=== PATIENT | male | born 1935 | race Caucasian/White ===

== ENCOUNTER 2021-11-20 11:05 | Inpatient (IN) | payer OTHER, MEDICARE ==
[~2021-11-20] VITALS: Ht 167.6 cm; Wt 78.0 kg
[~2021-11-20 11:05] MED LIST: CHOL500013 PO; LACT1CAP57 PO; LEUP22.53 IM; LINA145C PO; MIDO5TAB4 PO; MIRA50TA PO; MULT-33 PO; NEUTPHOSP PO; PANT20TA2 PO; POTA-197 PO; TAMS-11 PO; TRAM50TA2 PO; VANORAL PO
[2021-11-20 11:18] VITALS: BP_SYST 126
[2021-11-20] MEDS ORDERED: PANTOPRAZOLE SODIUM 40 MG/VIAL (PROTONIX) IVP ONE (11:45)
[2021-11-20] MEDS ORDERED: NACL 0.9% 1,000 ML IV ONE ×2 (11:45→13:15)
[2021-11-20 11:55] LABS: BASOPHILS # (AUTO) 0.1 K/uL (0.0-0.2); BASOPHILS % (AUTO) 0.9 % (0.0-2.0); EOSINOPHILS # (AUTO) 1.1 K/uL (0.0-0.4); EOSINOPHILS % (AUTO) 7.8 % (0.0-4.0); HEMATOCRIT 34.2 % (36-54); HEMOGLOBIN 11.2 g/dL (14.0-18.0); LYMPHOCYTES # (AUTO) 1.1 K/uL (1.0-5.5); LYMPHOCYTES % (AUTO) 7.6 % (20.5-51.5); MEAN CORPUSCULAR HEMOGLOBIN 27 pg (27-31); MEAN CORPUSCULAR HGB CONC 33 % (32-36); MEAN CORPUSCULAR VOLUME 81 fL (79.0-98.0); MONOCYTES # (AUTO) 1.3 K/uL (0.0-1.0); NEUTROPHILS # (AUTO) 10.9 K/uL (1.8-7.7); NEUTROPHILS % (AUTO) 74.7 % (40.0-70.0); PLATELET COUNT (AUTO) 404 K/uL (130-430); RED BLOOD CELL COUNT(AUTO) 4.24 MIL/uL (4.2-6.2); RED CELL DISTRIBUTION WIDTH 17.4 % (9.0-15.0); WHITE BLOOD COUNT (AUTO) 14.6 K/uL (4.8-10.8)
[2021-11-20 12:12] LABS: ANION GAP 3 (5-15); CALCIUM 8.6 mg/dL (8.4-11.0); CHLORIDE 99 mmol/L (98-107); GLUCOSE 99 mg/dL (70-99); POTASSIUM 3.9 mmol/L (3.5-5.1); SODIUM SERUM 133 mmol/L (136-145); UREA NITROGEN, BLOOD 15 mg/dL (8-21)
[2021-11-20 12:18] LABS: ALANINE AMINOTRANSFERASE 40 U/L (12-78); ALBUMIN 1.7 g/dL (3.4-4.8); ASPARTATE AMINOTRANSFERASE 66 U/L (10-37); LIPASE 42 U/L (73-393); TOTAL BILIRUBIN 0.2 mg/dL (0.0-1.0)
[2021-11-20 12:27] LABS: BILIRUBIN,URINE NEGATIVE (NEGATIVE); BLOOD, URINE 1+ (NEGATIVE); CLARITY/URINE CLEAR (CLEAR); COLOR,URINE YELLOW (YELLOW); GLUCOSE,URINE NEGATIVE (NEGATIVE); KETONES,URINE 1+ (NEGATIVE); LEUKOCYTE ESTERASE ,URINE 3+ (NEGATIVE); NITRITE, URINE NEGATIVE (NEGATIVE); PROTEIN URINE 1+ (NEGATIVE); UROBILINOGEN,URINE 0.2 (0.2-1.0)
[2021-11-20 12:50] LABS: BACTERIA,URINE None Seen /HPF (None Seen); WBC,URINE 20-50 /HPF (0-3)
[2021-11-20 12:51] LABS: YEAST,URINE Few /HPF (None Seen)
[2021-11-20] MEDS ORDERED: cefTRIAXone 1 GM in D5W 50 ML IV ONE (13:00)
[2021-11-20] MEDS ORDERED: cefTRIAXone 1 GM VIAL ONE (13:05)
[2021-11-20] MEDS ORDERED: ESCI10TA PO (15:00)
[2021-11-20] MEDS ORDERED: ACET-2634 PO (15:00)
[2021-11-20] MEDS ORDERED: TROS20TA2 PO (15:00)
[2021-11-20] MEDS ORDERED: ALBMDI INH (15:00)
[2021-11-20] MEDS ORDERED: HYDR-3917 PO (15:00)
[2021-11-20] MEDS ORDERED: L.RH1CAP PO (15:00)
[2021-11-20] MEDS ORDERED: GABA-533 PO (15:00)
[2021-11-20] MEDS ORDERED: MERO1PIG IV (15:00)
[2021-11-20] MEDS ORDERED: BACL5TAB PO (15:00)
[2021-11-20] MEDS ORDERED: VIBE75TA PO (15:00)
[2021-11-20] MEDS ORDERED: MOM PO (15:00)
[2021-11-20] MEDS ORDERED: HYDR-3927 PO (15:00)
[2021-11-20] MEDS ORDERED: ZOLP5TAB2 PO (15:00)
[2021-11-20] MEDS ORDERED: DOCU-144 PO (15:00)
[2021-11-20] MEDS ORDERED: BISA10SU61 RC (15:00)
[2021-11-20 16:59] VITALS: BP_SYST 121
[2021-11-20 17:00] VITALS: BP_SYST 121
[2021-11-20] MEDS ORDERED: MAGNESIUM SULFATE 50 ML IV PRN (17:15)
[2021-11-20] MEDS ORDERED: LORazepam 2 MG/ML VIAL IVP PRN (17:15)
[2021-11-20] MEDS ORDERED: ACETAMINOPHEN 325 MG TABLET PO PRN ×2 (17:15→17:30)
[2021-11-20] MEDS ORDERED: DOCUSATE SODIUM 100 MG CAPSULE PO PRN (17:15)
[2021-11-20] MEDS ORDERED: MORPHINE 2 MG/ML INJ. SYRINGE IVP PRN (17:15)
[2021-11-20] MEDS ORDERED: NALOXONE HCL 0.4 MG/ML AMP (NARCAN) IVP PRN ×2 (17:15)
[2021-11-20] MEDS ORDERED: FLUCONAZOLE 100 MG TABLET (DIFLUCAN) PO ONE (17:15)
[2021-11-20] MEDS ORDERED: ALBUTEROL MDI INHALATION 8 GM INH INH PRN (17:15)
[2021-11-20 18:00] VITALS: BP_SYST 109
[2021-11-20] MEDS: GABAPENTIN 400 MG CAPSULE PO SCH (18:08)
[2021-11-20] MEDS: D5NS 1,000 ML IV SCH (18:09)
[2021-11-20] MEDS ORDERED: cefTRIAXone 1 GM in D5W 50 ML IV SCH (18:30)
[2021-11-20 20:00] VITALS: BP_SYST 143; BP_SYST 146
[2021-11-20] MEDS ORDERED: NON-FORMULARY MEDICATION (Trospium Chloride 20 MG) PO SCH (21:00)
[2021-11-20] MEDS: PANTOPRAZOLE SODIUM 40 MG/VIAL (PROTONIX) IVP SCH (21:08)
[2021-11-21 00:44] VITALS: BP_SYST 120
[2021-11-21] MEDS: ONDANSETRON HCL 4 MG/2 ML VIAL IVP PRN (01:24)
[2021-11-21 06:43] LABS: BASOPHILS # (AUTO) 0.1 K/uL (0.0-0.2); BASOPHILS % (AUTO) 1.3 % (0.0-2.0); EOSINOPHILS # (AUTO) 1.2 K/uL (0.0-0.4); EOSINOPHILS % (AUTO) 12.7 % (0.0-4.0); HEMATOCRIT 30.7 % (36-54); LYMPHOCYTES # (AUTO) 1.2 K/uL (1.0-5.5); LYMPHOCYTES % (AUTO) 12.4 % (20.5-51.5); MEAN CORPUSCULAR HEMOGLOBIN 27 pg (27-31); MEAN CORPUSCULAR HGB CONC 32 % (32-36); MEAN CORPUSCULAR VOLUME 82 fL (79.0-98.0); MONOCYTES # (AUTO) 1.2 K/uL (0.0-1.0); MONOCYTES % (AUTO) 12.2 % (1.7-9.3); NEUTROPHILS % (AUTO) 61.4 % (40.0-70.0); PLATELET COUNT (AUTO) 332 K/uL (130-430); RED BLOOD CELL COUNT(AUTO) 3.75 MIL/uL (4.2-6.2); RED CELL DISTRIBUTION WIDTH 17.3 % (9.0-15.0); WHITE BLOOD COUNT (AUTO) 9.7 K/uL (4.8-10.8)
[2021-11-21 07:15] LABS: ANION GAP 3 (5-15); CALCIUM 7.7 mg/dL (8.4-11.0); CHLORIDE 105 mmol/L (98-107); CREATININE 0.89 mg/dL (0.55-1.30); GLUCOSE 85 mg/dL (70-99); POTASSIUM 3.3 mmol/L (3.5-5.1); SODIUM SERUM 136 mmol/L (136-145); UREA NITROGEN, BLOOD 10 mg/dL (8-21)
[2021-11-21] MEDS ORDERED: MEROPENEM 1 GM IVPB PREMIX 50 ML IV SCH (08:30)
[2021-11-21 08:33] VITALS: BP_SYST 110
[2021-11-21] MEDS ORDERED: ESCITALOPRAM OXALATE 10 MG TABLET PO SCH (09:00)
[2021-11-21] MEDS: PANTOPRAZOLE SODIUM 40 MG/VIAL (PROTONIX) IVP SCH ×2 (09:54→21:40)
[2021-11-21] MEDS: CITALOPRAM HYDROBROMIDE 20 MG TABLET PO SCH (09:55)
[2021-11-21] MEDS: FLUCONAZOLE 100 MG TABLET (DIFLUCAN) PO SCH (09:55)
[2021-11-21] MEDS: MEROPENEM 1 GM in NS 100 ML IV SCH ×3 (09:57→21:40)
[2021-11-21] MEDS: D5NS 1,000 ML IV SCH ×2 (09:58→17:20)
[2021-11-21 12:00] VITALS: BP_SYST 115
[2021-11-21] MEDS: GABAPENTIN 400 MG CAPSULE PO SCH ×4 (12:10→18:35)
[2021-11-21 13:16] VITALS: BP_SYST 110
[2021-11-21 16:05] VITALS: BP_SYST 115
[2021-11-21] MEDS: ALBUTEROL SULFATE 0.083% 2.5 MG/3 ML VIAL.NEB INH PRN (17:47)
[2021-11-21 20:00] VITALS: BP_SYST 128
[2021-11-21] MEDS: ZOLPIDEM TARTRATE 5 MG TABLET PO PRN (21:41)
[2021-11-21] MEDS: MORPHINE 2 MG/ML INJ. SYRINGE IVP PRN (21:42)
[2021-11-22] MEDS: ONDANSETRON HCL 4 MG/2 ML VIAL IVP PRN ×2 (01:24→08:50)
[2021-11-22] MEDS: GABAPENTIN 400 MG CAPSULE PO SCH ×4 (01:24→17:31)
[2021-11-22 02:02] VITALS: BP_SYST 139
[2021-11-22] MEDS: D5NS 1,000 ML IV SCH ×2 (05:20→17:33)
[2021-11-22] MEDS: MEROPENEM 1 GM in NS 100 ML IV SCH ×3 (06:16→22:10)
[2021-11-22 06:58] LABS: ANION GAP 5 (5-15); CALCIUM 8.8 mg/dL (8.4-11.0); CHLORIDE 106 mmol/L (98-107); CREATININE 0.84 mg/dL (0.55-1.30); GLUCOSE 146 mg/dL (70-99); POTASSIUM 3.1 mmol/L (3.5-5.1); SODIUM SERUM 140 mmol/L (136-145); UREA NITROGEN, BLOOD 8 mg/dL (8-21)
[2021-11-22 07:51] LABS: BASOPHILS # (AUTO) 0.1 K/uL (0.0-0.2); BASOPHILS % (AUTO) 0.9 % (0.0-2.0); EOSINOPHILS # (AUTO) 0.2 K/uL (0.0-0.4); EOSINOPHILS % (AUTO) 1.4 % (0.0-4.0); HEMATOCRIT 34.6 % (36-54); HEMOGLOBIN 10.9 g/dL (14.0-18.0); LYMPHOCYTES % (AUTO) 6.9 % (20.5-51.5); MEAN CORPUSCULAR HEMOGLOBIN 26 pg (27-31); MEAN CORPUSCULAR HGB CONC 32 % (32-36); MEAN CORPUSCULAR VOLUME 83 fL (79.0-98.0); MONOCYTES # (AUTO) 1.6 K/uL (0.0-1.0); MONOCYTES % (AUTO) 11.4 % (1.7-9.3); NEUTROPHILS % (AUTO) 79.4 % (40.0-70.0); PLATELET COUNT (AUTO) 384 K/uL (130-430); RED BLOOD CELL COUNT(AUTO) 4.19 MIL/uL (4.2-6.2); RED CELL DISTRIBUTION WIDTH 17.3 % (9.0-15.0); WHITE BLOOD COUNT (AUTO) 13.8 K/uL (4.8-10.8)
[2021-11-22 08:00] VITALS: BP_SYST 116
[2021-11-22] MEDS: CITALOPRAM HYDROBROMIDE 20 MG TABLET PO SCH (08:50)
[2021-11-22] MEDS: PANTOPRAZOLE SODIUM 40 MG/VIAL (PROTONIX) IVP SCH ×2 (08:50→22:10)
[2021-11-22] MEDS: FLUCONAZOLE 100 MG TABLET (DIFLUCAN) PO SCH (08:51)
[2021-11-22] MEDS: MORPHINE 2 MG/ML INJ. SYRINGE IVP PRN (09:01)
[2021-11-22] MEDS ORDERED: POTASSIUM CHLORIDE 40 MEQ, LIDOCAINE JECT 2% PF 100 MG 25 MG in NS 250 ML IV ONE (09:30)
[2021-11-22] MEDS ORDERED: FUROSEMIDE 40 MG/4 ML VIAL IVP ONE (09:30)
[2021-11-22 11:38] VITALS: BP_SYST 116
[2021-11-22 15:57] VITALS: BP_SYST 120
[2021-11-22 20:00] VITALS: BP_SYST 130
[2021-11-22] MEDS ORDERED: MUPIROCIN 1 GM OIN.PF.APP NS SCH (21:00)
[2021-11-22] MEDS: MUPIROCIN 2% TOPICAL OINTMENT 22 GM NS SCH (22:11)
[2021-11-22] MEDS: ZOLPIDEM TARTRATE 5 MG TABLET PO PRN (22:12)
[2021-11-23 00:15] VITALS: BP_SYST 126
[2021-11-23] MEDS: GABAPENTIN 400 MG CAPSULE PO SCH ×4 (01:01→17:36)
[2021-11-23] MEDS: MEROPENEM 1 GM in NS 100 ML IV SCH ×3 (06:14→21:39)
[2021-11-23] MEDS: D5NS 1,000 ML IV SCH (06:15)
[2021-11-23 07:00] LABS: BASOPHILS # (AUTO) 0.2 K/uL (0.0-0.2); BASOPHILS % (AUTO) 0.9 % (0.0-2.0); EOSINOPHILS # (AUTO) 0.5 K/uL (0.0-0.4); EOSINOPHILS % (AUTO) 2.9 % (0.0-4.0); HEMATOCRIT 31.9 % (36-54); HEMOGLOBIN 10.3 g/dL (14.0-18.0); LYMPHOCYTES # (AUTO) 1.2 K/uL (1.0-5.5); LYMPHOCYTES % (AUTO) 6.4 % (20.5-51.5); MEAN CORPUSCULAR HEMOGLOBIN 26 pg (27-31); MEAN CORPUSCULAR HGB CONC 32 % (32-36); MEAN CORPUSCULAR VOLUME 82 fL (79.0-98.0); MONOCYTES # (AUTO) 1.8 K/uL (0.0-1.0); NEUTROPHILS # (AUTO) 14.3 K/uL (1.8-7.7); PLATELET COUNT (AUTO) 347 K/uL (130-430); RED BLOOD CELL COUNT(AUTO) 3.91 MIL/uL (4.2-6.2); RED CELL DISTRIBUTION WIDTH 17.5 % (9.0-15.0); WHITE BLOOD COUNT (AUTO) 17.9 K/uL (4.8-10.8)
[2021-11-23] MEDS ORDERED: SIMETHICONE 40 MG/0.6 ML ML PO ONE (07:30)
[2021-11-23] MEDS ORDERED: MEPERIDINE 100 MG INJ. 100 MG/ML VIAL ONE (07:37)
[2021-11-23] MEDS ORDERED: MIDAZOLAM HCL 5 MG/5 ML VIAL ONE (07:38)
[2021-11-23 07:48] LABS: ANION GAP 2 (5-15); CALCIUM 7.9 mg/dL (8.4-11.0); CHLORIDE 109 mmol/L (98-107); CREATININE 0.99 mg/dL (0.55-1.30); GLUCOSE 117 mg/dL (70-99); POTASSIUM 3.4 mmol/L (3.5-5.1); SODIUM SERUM 142 mmol/L (136-145); UREA NITROGEN, BLOOD 7 mg/dL (8-21)
[2021-11-23 08:00] VITALS: BP_SYST 130
[2021-11-23 08:05] VITALS: BP_SYST 102
[2021-11-23] MEDS ORDERED: DIATR MEGLU/DIATRIZ SOD 30 ML SOLUTION PO ONE (10:46)
[2021-11-23] MEDS: CITALOPRAM HYDROBROMIDE 20 MG TABLET PO SCH (11:09)
[2021-11-23] MEDS: PANTOPRAZOLE SODIUM 40 MG/VIAL (PROTONIX) IVP SCH ×2 (11:09→20:44)
[2021-11-23] MEDS: MUPIROCIN 2% TOPICAL OINTMENT 22 GM NS SCH ×2 (11:09→20:45)
[2021-11-23] MEDS: MICAFUNGIN SODIUM 100 MG in NS 100 ML IV SCH (11:14)
[2021-11-23] MEDS ORDERED: VANCOMYCIN HCL 1 GM/NS PREMIX 250 ML IV ONE (11:30)
[2021-11-23 12:22] LABS: NEUTROPHILS % (AUTO) 79.8 % (40.0-70.0)
[2021-11-23 12:41] VITALS: BP_SYST 103
[2021-11-23 16:21] VITALS: BP_SYST 109
[2021-11-23] MEDS: ALBUTEROL SULFATE 0.083% 2.5 MG/3 ML VIAL.NEB INH PRN (18:57)
[2021-11-23 20:00] VITALS: BP_SYST 131
[2021-11-24 00:21] VITALS: BP_SYST 116
[2021-11-24] MEDS: GABAPENTIN 400 MG CAPSULE PO SCH ×4 (00:25→17:29)
[2021-11-24] MEDS: D5NS 1,000 ML IV SCH ×2 (03:00→22:42)
[2021-11-24] MEDS: MEROPENEM 1 GM in NS 100 ML IV SCH ×3 (05:46→22:37)
[2021-11-24 06:57] LABS: BASOPHILS # (AUTO) 0.2 K/uL (0.0-0.2); EOSINOPHILS # (AUTO) 1.3 K/uL (0.0-0.4); EOSINOPHILS % (AUTO) 7.7 % (0.0-4.0); HEMATOCRIT 29.2 % (36-54); HEMOGLOBIN 9.3 g/dL (14.0-18.0); LYMPHOCYTES # (AUTO) 1.5 K/uL (1.0-5.5); LYMPHOCYTES % (AUTO) 8.7 % (20.5-51.5); MEAN CORPUSCULAR HEMOGLOBIN 26 pg (27-31); MEAN CORPUSCULAR HGB CONC 32 % (32-36); MEAN CORPUSCULAR VOLUME 82 fL (79.0-98.0); MONOCYTES # (AUTO) 1.3 K/uL (0.0-1.0); MONOCYTES % (AUTO) 7.4 % (1.7-9.3); NEUTROPHILS # (AUTO) 13.1 K/uL (1.8-7.7); NEUTROPHILS % (AUTO) 75.2 % (40.0-70.0); PLATELET COUNT (AUTO) 302 K/uL (130-430); RED BLOOD CELL COUNT(AUTO) 3.56 MIL/uL (4.2-6.2); RED CELL DISTRIBUTION WIDTH 17.5 % (9.0-15.0); WHITE BLOOD COUNT (AUTO) 17.4 K/uL (4.8-10.8)
[2021-11-24 07:48] LABS: ANION GAP -3 (5-15); CHLORIDE 104 mmol/L (98-107); CREATININE 0.91 mg/dL (0.55-1.30); GLUCOSE 98 mg/dL (70-99); SODIUM SERUM 134 mmol/L (136-145); UREA NITROGEN, BLOOD 10 mg/dL (8-21)
[2021-11-24 08:00] VITALS: BP_SYST 120
[2021-11-24] MEDS: ALBUTEROL SULFATE 0.083% 2.5 MG/3 ML VIAL.NEB INH PRN (08:14)
[2021-11-24 08:44] LABS: POTASSIUM 3.1 mmol/L (3.5-5.1)
[2021-11-24] MEDS: CITALOPRAM HYDROBROMIDE 20 MG TABLET PO SCH (09:58)
[2021-11-24] MEDS: PANTOPRAZOLE SODIUM 40 MG/VIAL (PROTONIX) IVP SCH ×2 (09:59→20:29)
[2021-11-24] MEDS: MUPIROCIN 2% TOPICAL OINTMENT 22 GM NS SCH ×2 (10:13→20:29)
[2021-11-24] MEDS: MICAFUNGIN SODIUM 100 MG in NS 100 ML IV SCH (10:45)
[2021-11-24] MEDS: MORPHINE 2 MG/ML INJ. SYRINGE IVP PRN ×3 (10:49→20:31)
[2021-11-24 12:00] VITALS: BP_SYST 118
[2021-11-24 16:58] VITALS: BP_SYST 119
[2021-11-24 20:00] VITALS: BP_SYST 111
[2021-11-24] MEDS: ZOLPIDEM TARTRATE 5 MG TABLET PO PRN (22:35)
[2021-11-25 01:14] VITALS: BP_SYST 115
[2021-11-25] MEDS: GABAPENTIN 400 MG CAPSULE PO SCH ×4 (05:22→17:47)
[2021-11-25] MEDS: MEROPENEM 1 GM in NS 100 ML IV SCH ×3 (05:56→22:19)
[2021-11-25 07:20] LABS: BASOPHILS # (AUTO) 0.1 K/uL (0.0-0.2); BASOPHILS % (AUTO) 1.2 % (0.0-2.0); EOSINOPHILS # (AUTO) 2.3 K/uL (0.0-0.4); EOSINOPHILS % (AUTO) 19.3 % (0.0-4.0); HEMATOCRIT 30.3 % (36-54); HEMOGLOBIN 9.6 g/dL (14.0-18.0); LYMPHOCYTES # (AUTO) 1.3 K/uL (1.0-5.5); LYMPHOCYTES % (AUTO) 11.2 % (20.5-51.5); MEAN CORPUSCULAR HEMOGLOBIN 26 pg (27-31); MEAN CORPUSCULAR HGB CONC 32 % (32-36); MEAN CORPUSCULAR VOLUME 82 fL (79.0-98.0); MONOCYTES # (AUTO) 1.1 K/uL (0.0-1.0); MONOCYTES % (AUTO) 9.2 % (1.7-9.3); NEUTROPHILS # (AUTO) 6.9 K/uL (1.8-7.7); NEUTROPHILS % (AUTO) 59.1 % (40.0-70.0); PLATELET COUNT (AUTO) 296 K/uL (130-430); RED BLOOD CELL COUNT(AUTO) 3.69 MIL/uL (4.2-6.2); RED CELL DISTRIBUTION WIDTH 17.9 % (9.0-15.0); WHITE BLOOD COUNT (AUTO) 11.7 K/uL (4.8-10.8)
[2021-11-25 08:00] VITALS: BP_SYST 119
[2021-11-25 08:06] LABS: ANION GAP -1 (5-15); CHLORIDE 110 mmol/L (98-107); CREATININE 0.93 mg/dL (0.55-1.30); GLUCOSE 93 mg/dL (70-99); SODIUM SERUM 144 mmol/L (136-145); UREA NITROGEN, BLOOD 10 mg/dL (8-21)
[2021-11-25 08:30] LABS: POTASSIUM 2.9 mmol/L (3.5-5.1)
[2021-11-25] MEDS: PANTOPRAZOLE SODIUM 40 MG/VIAL (PROTONIX) IVP SCH ×2 (09:43→22:20)
[2021-11-25] MEDS: CITALOPRAM HYDROBROMIDE 20 MG TABLET PO SCH (09:43)
[2021-11-25] MEDS: MUPIROCIN 2% TOPICAL OINTMENT 22 GM NS SCH ×2 (09:44→22:17)
[2021-11-25] MEDS ORDERED: POTASSIUM CHLORIDE 40 MEQ, LIDOCAINE JECT 2% PF 100 MG 50 MG in NS 250 ML IV ONE (10:30)
[2021-11-25 12:00] VITALS: BP_SYST 116
[2021-11-25] MEDS: MICAFUNGIN SODIUM 100 MG in NS 100 ML IV SCH (12:04)
[2021-11-25 16:00] VITALS: BP_SYST 118
[2021-11-25] MEDS: MORPHINE 2 MG/ML INJ. SYRINGE IVP PRN (17:52)
[2021-11-25] MEDS: D5NS 1,000 ML IV SCH (18:03)
[2021-11-25 20:00] VITALS: BP_SYST 141
[2021-11-25] MEDS: ZOLPIDEM TARTRATE 5 MG TABLET PO PRN (22:20)
[2021-11-26 00:50] VITALS: BP_SYST 120
[2021-11-26] MEDS: GABAPENTIN 400 MG CAPSULE PO SCH ×3 (05:35→12:18)
[2021-11-26] MEDS: MEROPENEM 1 GM in NS 100 ML IV SCH ×2 (05:59→12:20)
[2021-11-26] MEDS: MORPHINE 2 MG/ML INJ. SYRINGE IVP PRN ×2 (06:01→12:39)
[2021-11-26 08:58] LABS: ANION GAP -3 (5-15); CALCIUM 7.9 mg/dL (8.4-11.0); CHLORIDE 108 mmol/L (98-107); CREATININE 0.93 mg/dL (0.55-1.30); GLUCOSE 104 mg/dL (70-99); POTASSIUM 3.5 mmol/L (3.5-5.1); SODIUM SERUM 140 mmol/L (136-145); UREA NITROGEN, BLOOD 6 mg/dL (8-21)
[2021-11-26] MEDS: PANTOPRAZOLE SODIUM 40 MG/VIAL (PROTONIX) IVP SCH (09:06)
[2021-11-26] MEDS: CITALOPRAM HYDROBROMIDE 20 MG TABLET PO SCH (09:06)
[2021-11-26] MEDS: MUPIROCIN 2% TOPICAL OINTMENT 22 GM NS SCH (09:09)
[2021-11-26 09:37] VITALS: BP_SYST 132
[2021-11-26 10:49] VITALS: BP_SYST 132
[2021-11-26 11:45] VITALS: BP_SYST 130
[2021-11-26 12:00] VITALS: BP_SYST 128
[2021-11-26] MEDS: MICAFUNGIN SODIUM 100 MG in NS 100 ML IV SCH (12:19)
== END 2021-11-26 15:00 | DRG 871 ==
LOC: SED 11:05 → STU 15:46
PROVIDERS: ADMIT General Practice; ATTEND General Practice
PROC: 0DB78ZX Excision of Stomach, Pylorus, Via Natural or Artificial Opening Endoscopic, Diagnostic (ICD-10-PCS; principal; 2021-11-23 09:50)
DX: A41.9 Sepsis, unspecified organism (principal); K25.4 Chronic or unspecified gastric ulcer with hemorrhage; E43 Unspecified severe protein-calorie malnutrition; L02.416 Cutaneous abscess of left lower limb; M86.8X5 Other osteomyelitis, thigh; B37.49 Other urogenital candidiasis; Z20.822 Contact with and (suspected) exposure to COVID-19; C61 Malignant neoplasm of prostate; N30.90 Cystitis, unspecified without hematuria; Z92.3 Personal history of irradiation; Z85.46 Personal history of malignant neoplasm of prostate; Z90.79 Acquired absence of other genital organ(s); Z87.440 Personal history of urinary (tract) infections; Z68.27 Body mass index [BMI] 27.0-27.9, adult
CPT/HCPCS: 36415; 43239; 71045; 76376; 80048; 80053; 81000; 83036; 83605; 83690; 83735; 85025; 86886; 86900; 86901; 87040; 87081; 87086; 88305; 88312; 88313; 92610-GN; 94640; 96365; 96375; 97163-GP; 97530-GP; 99291; C9113; G0378; J0696; J1940; J2175; J2185; J2248; J2250; J2270; J2405; J3370; J3480; J7050; J7060; J7613; Q9964; Q9967

== ENCOUNTER 2021-12-02 19:10 | Inpatient (IN) | payer OTHER, MEDICARE ==
[~2021-12-02] VITALS: Ht 177.8 cm; Wt 85.7 kg
[~2021-12-02 19:10] MED LIST changes: +ACET-2634 PO; +ALBMDI INH; +BACL5TAB PO; +BISA10SU61 RC; -CHOL500013 PO; +DOCU-144 PO; +ESCI10TA PO; +GABA-533 PO; +HYDR-3917 PO; +HYDR-3927 PO; +L.RH1CAP PO; -LACT1CAP57 PO; -LEUP22.53 IM; -LINA145C PO; +MERO1PIG IV; -MIDO5TAB4 PO; -MIRA50TA PO; +MOM PO; -MULT-33 PO; -NEUTPHOSP PO; -POTA-197 PO; -TAMS-11 PO; -TRAM50TA2 PO; +TROS20TA2 PO; -VANORAL PO; +VIBE75TA PO; +ZOLP5TAB2 PO
[2021-12-02 19:20] VITALS: BP_SYST 136
[2021-12-02] MEDS ORDERED: ONDANSETRON HCL 4 MG/2 ML VIAL IVP ONE (19:45)
[2021-12-02] MEDS ORDERED: IPRA4AER INH (20:07)
[2021-12-02] MEDS ORDERED: MULT-1117 PO (20:07)
[2021-12-02] MEDS ORDERED: ONDA-8 SL (20:07)
[2021-12-02] MEDS ORDERED: ESCI10TA PO (20:07)
[2021-12-02 20:22] LABS: BASOPHILS # (AUTO) 0.2 K/uL (0.0-0.2); EOSINOPHILS # (AUTO) 0.9 K/uL (0.0-0.4); EOSINOPHILS % (AUTO) 5.8 % (0.0-4.0); HEMOGLOBIN 10.7 g/dL (14.0-18.0); LYMPHOCYTES # (AUTO) 0.9 K/uL (1.0-5.5); LYMPHOCYTES % (AUTO) 5.5 % (20.5-51.5); MEAN CORPUSCULAR HEMOGLOBIN 26 pg (27-31); MEAN CORPUSCULAR HGB CONC 32 % (32-36); MEAN CORPUSCULAR VOLUME 82 fL (79.0-98.0); MONOCYTES % (AUTO) 6.4 % (1.7-9.3); NEUTROPHILS # (AUTO) 13.3 K/uL (1.8-7.7); NEUTROPHILS % (AUTO) 81.3 % (40.0-70.0); PLATELET COUNT (AUTO) 408 K/uL (130-430); RED BLOOD CELL COUNT(AUTO) 4.13 MIL/uL (4.2-6.2); RED CELL DISTRIBUTION WIDTH 17.5 % (9.0-15.0); WHITE BLOOD COUNT (AUTO) 16.3 K/uL (4.8-10.8)
[2021-12-02 20:26] LABS: CALCIUM 8.8 mg/dL (8.4-11.0); CHLORIDE 100 mmol/L (98-107); CREATININE 0.99 mg/dL (0.55-1.30); GLUCOSE 94 mg/dL (70-99); POTASSIUM 4.1 mmol/L (3.5-5.1); SODIUM SERUM 136 mmol/L (136-145); UREA NITROGEN, BLOOD 6 mg/dL (8-21)
[2021-12-02 20:37] LABS: ALANINE AMINOTRANSFERASE 41 U/L (12-78); ALBUMIN 1.7 g/dL (3.4-4.8); ANION GAP 3 (5-15); ASPARTATE AMINOTRANSFERASE 90 U/L (10-37); LIPASE 70 U/L (73-393); TOTAL BILIRUBIN 0.2 mg/dL (0.0-1.0)
[2021-12-02] MEDS ORDERED: ONDANSETRON HCL 4 MG/2 ML VIAL ONE (20:39)
[2021-12-02 20:55] LABS: BILIRUBIN,URINE NEGATIVE (NEGATIVE); BLOOD, URINE 2+ (NEGATIVE); CLARITY/URINE CLEAR (CLEAR); GLUCOSE,URINE NEGATIVE (NEGATIVE); KETONES,URINE NEGATIVE (NEGATIVE); LEUKOCYTE ESTERASE ,URINE TRACE (NEGATIVE); NITRITE, URINE NEGATIVE (NEGATIVE); PH,URINE 6.5 (5.0-8.0); PROTEIN URINE NEGATIVE (NEGATIVE); UROBILINOGEN,URINE 0.2 (0.2-1.0)
[2021-12-02] MEDS ORDERED: PIPERACILLIN/TAZO 3.375 GM in NS 50 ML IV ONE (21:00)
[2021-12-02] MEDS ORDERED: VANCOMYCIN HCL 1,000 MG in NS 250 ML IV ONE (21:00)
[2021-12-02 21:06] LABS: COLOR,URINE STRAW (YELLOW)
[2021-12-02 21:08] LABS: BACTERIA,URINE FEW /HPF (None Seen); CALCIUM OXALATE CRYSTALS,UR 0-10 /HPF (None Seen); MUCUS,URINE None Seen /LPF (None Seen); RBC,URINE NONE SEEN /HPF (0-3)
[2021-12-02] MEDS ORDERED: ALBUMIN HUMAN 25% 100 ML IV ONE ×3 (21:15→23:30)
[2021-12-02] MEDS ORDERED: VANCOMYCIN HCL 1000 MG/VIAL IV ONE (21:23)
[2021-12-02] MEDS ORDERED: PIPERACILLIN/TAZOBACTAM 3.375 GM/VIAL (ZOSYN) IV ONE (21:23)
[2021-12-02 23:00] VITALS: BP_SYST 137
[2021-12-02] MEDS ORDERED: IPRATROPIUM/ALBUTEROL SULFATE 120 PUFFS/4 GM INH INH SCH (23:15)
[2021-12-02] MEDS ORDERED: ZOLPIDEM TARTRATE 5 MG TABLET PO PRN (23:15)
[2021-12-02] MEDS ORDERED: NALOXONE HCL 0.4 MG/ML AMP (NARCAN) IVP PRN (23:15)
[2021-12-02] MEDS ORDERED: ONDANSETRON 4 MG ODT TAB PO PRN (23:15)
[2021-12-02] MEDS ORDERED: MILK OF MAGNESIA 30 ML UDC PO SCH (23:15)
[2021-12-02] MEDS ORDERED: ENOXAPARIN SODIUM 40 MG/0.4 ML SYRINGE SUBCUT ONE (23:15)
[2021-12-02] MEDS ORDERED: AZITHROMYCIN 500 MG in NS 250 ML IV SCH (23:15)
[2021-12-02] MEDS ORDERED: PANTOPRAZOLE SODIUM 40 MG/VIAL (PROTONIX) IVP ONE (23:30)
[2021-12-03] MEDS: HYDROcodone/ACETAMIN 5-325 MG TAB (NORCO/ VICODIN) PO SCH ×3 (00:27→23:24)
[2021-12-03] MEDS: D5LR 1,000 ML IV SCH ×2 (00:30→18:48)
[2021-12-03] MEDS ORDERED: PIPERACILLIN/TAZOBACTAM 3.375 GM/VIAL (ZOSYN) IV ONE (02:46)
[2021-12-03] MEDS ORDERED: AZITHROMYCIN 500 MG/VIAL (ZITHROMAX) IV ONE (02:46)
[2021-12-03 03:46] VITALS: BP_SYST 133
[2021-12-03] MEDS: PIPERACILLIN/TAZO 3.375/DEX-IS 50 ML IV SCH ×4 (06:31→23:23)
[2021-12-03 06:56] LABS: ANION GAP 2 (5-15); CALCIUM 8.1 mg/dL (8.4-11.0); CHLORIDE 105 mmol/L (98-107); CREATININE 0.85 mg/dL (0.55-1.30); GLUCOSE 89 mg/dL (70-99); PHOSPHORUS 2.1 mg/dL (2.7-4.5); POTASSIUM 3.9 mmol/L (3.5-5.1); SODIUM SERUM 143 mmol/L (136-145); UREA NITROGEN, BLOOD 5 mg/dL (8-21)
[2021-12-03] MEDS: IPRATROPIUM/ALBUTEROL SULFATE 3 ML AMPUL.NEB (DUONEB) INH SCH ×3 (07:28→14:08)
[2021-12-03 08:01] LABS: CHOLESTEROL 71 mg/dL (<200); HDL CHOLESTEROL 30 mg/dL (>45); LDL CHOLESTEROL 41 mg/dL (<100); TRIGLYCERIDES 84 mg/dL (30-150)
[2021-12-03 08:07] VITALS: BP_SYST 117
[2021-12-03] MEDS: MULTIVITS,CA,MINERALS/IRON/FA 1 TABLET PO SCH (08:25)
[2021-12-03] MEDS: DOCUSATE SODIUM 100 MG CAPSULE PO SCH ×2 (08:25→23:19)
[2021-12-03] MEDS: PANTOPRAZOLE SODIUM 40 MG/VIAL (PROTONIX) IVP SCH (08:25)
[2021-12-03] MEDS: CHOLECALCIFEROL (VITAMIN D3) 5,000 UNIT TABLET PO SCH (08:26)
[2021-12-03] MEDS: CITALOPRAM HYDROBROMIDE 20 MG TABLET PO SCH (08:26)
[2021-12-03] MEDS: LACTOBACILLUS RHAMNOSUS GG 1 CAP CAPSULE PO SCH ×2 (08:26→23:15)
[2021-12-03] MEDS: BISACODYL 10 MG/SUPPOSITORY RC SCH (08:27)
[2021-12-03] MEDS: MULTIVITAMINS TAB 1 TABLET PO SCH (08:27)
[2021-12-03 08:31] LABS: TOTAL IRON BIND. CAPACITY 84 ug/dL (250-450)
[2021-12-03] MEDS: ACETAMINOPHEN 500 MG TABLET PO PRN (08:47)
[2021-12-03] MEDS ORDERED: NON-FORMULARY MEDICATION (Pantoprazole (Protonix) 40 MG) PO SCH (09:00)
[2021-12-03 10:07] LABS: BASOPHILS # (AUTO) 0.1 K/uL (0.0-0.2); BASOPHILS % (AUTO) 0.5 % (0.0-2.0); EOSINOPHILS # (AUTO) 0.6 K/uL (0.0-0.4); HEMATOCRIT 29.1 % (36-54); HEMOGLOBIN 9.3 g/dL (14.0-18.0); LYMPHOCYTES # (AUTO) 1.1 K/uL (1.0-5.5); LYMPHOCYTES % (AUTO) 5.5 % (20.5-51.5); MEAN CORPUSCULAR HEMOGLOBIN 26 pg (27-31); MEAN CORPUSCULAR HGB CONC 32 % (32-36); MEAN CORPUSCULAR VOLUME 81 fL (79.0-98.0); MONOCYTES # (AUTO) 1.3 K/uL (0.0-1.0); MONOCYTES % (AUTO) 6.4 % (1.7-9.3); NEUTROPHILS # (AUTO) 17.2 K/uL (1.8-7.7); NEUTROPHILS % (AUTO) 84.6 % (40.0-70.0); RED BLOOD CELL COUNT(AUTO) 3.58 MIL/uL (4.2-6.2); RED CELL DISTRIBUTION WIDTH 17.3 % (9.0-15.0); WHITE BLOOD COUNT (AUTO) 20.3 K/uL (4.8-10.8)
[2021-12-03 10:36] LABS: PLATELET COUNT (AUTO) 73 K/uL (130-430)
[2021-12-03] MEDS: BACLOFEN 10 MG TABLET PO SCH ×3 (11:16→23:23)
[2021-12-03 11:40] VITALS: BP_SYST 110
[2021-12-03] MEDS: MICAFUNGIN SODIUM 100 MG in NS 100 ML IV SCH (13:28)
[2021-12-03] MEDS: SOD FERRIC GLUC COMPLEX/SUC 125 MG in NS 100 ML IV SCH (16:00)
[2021-12-03 16:52] VITALS: BP_SYST 116
[2021-12-03] MEDS: EPOETIN ALFA-EPBX 4,000 UNITS/ML VIAL SUBCUT SCH (17:23)
[2021-12-03 20:00] VITALS: BP_SYST 101
[2021-12-03] MEDS ORDERED: ENOXAPARIN SODIUM 40 MG/0.4 ML SYRINGE SUBCUT SCH (21:00)
[2021-12-03] MEDS: GABAPENTIN 300 MG CAPSULE PO SCH (23:15)
[2021-12-03] MEDS: MIRTAZAPINE 15 MG TABLET PO SCH (23:23)
[2021-12-04 00:07] VITALS: BP_SYST 133
[2021-12-04] MEDS: IPRATROPIUM/ALBUTEROL SULFATE 3 ML AMPUL.NEB (DUONEB) INH SCH ×8 (03:00→23:50)
[2021-12-04] MEDS: BACLOFEN 10 MG TABLET PO SCH ×4 (06:00→23:18)
[2021-12-04] MEDS: PIPERACILLIN/TAZO 3.375/DEX-IS 50 ML IV SCH ×4 (06:12→23:18)
[2021-12-04 06:29] LABS: BASOPHILS # (AUTO) 0.1 K/uL (0.0-0.2); BASOPHILS % (AUTO) 0.7 % (0.0-2.0); EOSINOPHILS # (AUTO) 1.6 K/uL (0.0-0.4); EOSINOPHILS % (AUTO) 10.6 % (0.0-4.0); HEMATOCRIT 29.1 % (36-54); HEMOGLOBIN 9.2 g/dL (14.0-18.0); LYMPHOCYTES # (AUTO) 1.1 K/uL (1.0-5.5); LYMPHOCYTES % (AUTO) 7.4 % (20.5-51.5); MEAN CORPUSCULAR HEMOGLOBIN 26 pg (27-31); MEAN CORPUSCULAR HGB CONC 32 % (32-36); MEAN CORPUSCULAR VOLUME 82 fL (79.0-98.0); MONOCYTES # (AUTO) 1.3 K/uL (0.0-1.0); NEUTROPHILS # (AUTO) 10.7 K/uL (1.8-7.7); NEUTROPHILS % (AUTO) 72.3 % (40.0-70.0); PLATELET COUNT (AUTO) 124 K/uL (130-430); RED BLOOD CELL COUNT(AUTO) 3.54 MIL/uL (4.2-6.2); RED CELL DISTRIBUTION WIDTH 17.5 % (9.0-15.0); WHITE BLOOD COUNT (AUTO) 14.8 K/uL (4.8-10.8)
[2021-12-04 06:39] LABS: CALCIUM 9.6 mg/dL (8.4-11.0); CHLORIDE 102 mmol/L (98-107); GLUCOSE 100 mg/dL (70-99); POTASSIUM 3.5 mmol/L (3.5-5.1); SODIUM SERUM 141 mmol/L (136-145); UREA NITROGEN, BLOOD 6 mg/dL (8-21)
[2021-12-04 07:36] LABS: ANION GAP < 3 (5-15)
[2021-12-04 08:00] VITALS: BP_SYST 137
[2021-12-04] MEDS: LACTOBACILLUS RHAMNOSUS GG 1 CAP CAPSULE PO SCH ×2 (08:07→20:52)
[2021-12-04] MEDS: MULTIVITAMINS TAB 1 TABLET PO SCH (08:08)
[2021-12-04] MEDS: GABAPENTIN 300 MG CAPSULE PO SCH ×4 (08:08→20:53)
[2021-12-04] MEDS: DOCUSATE SODIUM 100 MG CAPSULE PO SCH ×2 (08:08→20:54)
[2021-12-04] MEDS: PANTOPRAZOLE SODIUM 40 MG/VIAL (PROTONIX) IVP SCH (08:08)
[2021-12-04] MEDS: CHOLECALCIFEROL (VITAMIN D3) 5,000 UNIT TABLET PO SCH (08:08)
[2021-12-04] MEDS: MULTIVITS,CA,MINERALS/IRON/FA 1 TABLET PO SCH (08:08)
[2021-12-04] MEDS: CITALOPRAM HYDROBROMIDE 20 MG TABLET PO SCH (08:08)
[2021-12-04] MEDS: ACETAMINOPHEN 500 MG TABLET PO PRN (08:08)
[2021-12-04] MEDS: BISACODYL 10 MG/SUPPOSITORY RC SCH (08:25)
[2021-12-04] MEDS: HYDROcodone/ACETAMIN 5-325 MG TAB (NORCO/ VICODIN) PO SCH ×2 (11:20→23:18)
[2021-12-04 11:23] VITALS: BP_SYST 112
[2021-12-04] MEDS: MICAFUNGIN SODIUM 100 MG in NS 100 ML IV SCH (14:40)
[2021-12-04 15:48] VITALS: BP_SYST 120
[2021-12-04] MEDS: D5LR 1,000 ML IV SCH (16:09)
[2021-12-04] MEDS: SOD FERRIC GLUC COMPLEX/SUC 125 MG in NS 100 ML IV SCH (16:51)
[2021-12-04 19:45] VITALS: BP_SYST 149
[2021-12-04] MEDS: MIRTAZAPINE 15 MG TABLET PO SCH (20:53)
[2021-12-04] MEDS ORDERED: MIRTAZAPINE 15 MG TABLET PO SCH (21:00)
[2021-12-05 01:19] VITALS: BP_SYST 153
[2021-12-05] MEDS: IPRATROPIUM/ALBUTEROL SULFATE 3 ML AMPUL.NEB (DUONEB) INH SCH ×6 (03:00→23:35)
[2021-12-05] MEDS: PIPERACILLIN/TAZO 3.375/DEX-IS 50 ML IV SCH ×3 (05:34→17:39)
[2021-12-05] MEDS: BACLOFEN 10 MG TABLET PO SCH ×3 (05:34→18:46)
[2021-12-05 06:49] LABS: BASOPHILS # (AUTO) 0.2 K/uL (0.0-0.2); BASOPHILS % (AUTO) 1.4 % (0.0-2.0); EOSINOPHILS # (AUTO) 2.1 K/uL (0.0-0.4); EOSINOPHILS % (AUTO) 18.3 % (0.0-4.0); HEMOGLOBIN 9.3 g/dL (14.0-18.0); LYMPHOCYTES # (AUTO) 1.4 K/uL (1.0-5.5); MEAN CORPUSCULAR HEMOGLOBIN 26 pg (27-31); MEAN CORPUSCULAR HGB CONC 32 % (32-36); MEAN CORPUSCULAR VOLUME 82 fL (79.0-98.0); MONOCYTES # (AUTO) 0.9 K/uL (0.0-1.0); MONOCYTES % (AUTO) 7.7 % (1.7-9.3); NEUTROPHILS # (AUTO) 6.8 K/uL (1.8-7.7); NEUTROPHILS % (AUTO) 60.6 % (40.0-70.0); PLATELET COUNT (AUTO) 183 K/uL (130-430); RED BLOOD CELL COUNT(AUTO) 3.53 MIL/uL (4.2-6.2); RED CELL DISTRIBUTION WIDTH 18.1 % (9.0-15.0); WHITE BLOOD COUNT (AUTO) 11.3 K/uL (4.8-10.8)
[2021-12-05 07:29] LABS: ALANINE AMINOTRANSFERASE 29 U/L (12-78); ALBUMIN 1.6 g/dL (3.4-4.8); ANION GAP 3 (5-15); ASPARTATE AMINOTRANSFERASE 47 U/L (10-37); CALCIUM 8.6 mg/dL (8.4-11.0); CHLORIDE 107 mmol/L (98-107); CREATININE 0.86 mg/dL (0.55-1.30); GLUCOSE 88 mg/dL (70-99); POTASSIUM 3.4 mmol/L (3.5-5.1); SODIUM SERUM 147 mmol/L (136-145); TOTAL BILIRUBIN 0.2 mg/dL (0.0-1.0); UREA NITROGEN, BLOOD 6 mg/dL (8-21)
[2021-12-05] MEDS: CHOLECALCIFEROL (VITAMIN D3) 5,000 UNIT TABLET PO SCH (09:05)
[2021-12-05] MEDS: BISACODYL 10 MG/SUPPOSITORY RC SCH (09:05)
[2021-12-05] MEDS: CITALOPRAM HYDROBROMIDE 20 MG TABLET PO SCH (09:05)
[2021-12-05] MEDS: GABAPENTIN 300 MG CAPSULE PO SCH ×4 (09:05→22:45)
[2021-12-05] MEDS: MULTIVITAMINS TAB 1 TABLET PO SCH (09:05)
[2021-12-05] MEDS: PANTOPRAZOLE SODIUM 40 MG/VIAL (PROTONIX) IVP SCH (09:05)
[2021-12-05] MEDS: MULTIVITS,CA,MINERALS/IRON/FA 1 TABLET PO SCH (09:05)
[2021-12-05] MEDS: DOCUSATE SODIUM 100 MG CAPSULE PO SCH ×2 (09:05→21:00)
[2021-12-05] MEDS: LACTOBACILLUS RHAMNOSUS GG 1 CAP CAPSULE PO SCH ×2 (09:05→22:44)
[2021-12-05] MEDS ORDERED: POTASSIUM CHLORIDE 20 MEQ/PKT PACKET PO ONE (10:00)
[2021-12-05 11:59] VITALS: BP_SYST 123
[2021-12-05] MEDS: MICAFUNGIN SODIUM 100 MG in NS 100 ML IV SCH (12:21)
[2021-12-05] MEDS: HYDROcodone/ACETAMIN 5-325 MG TAB (NORCO/ VICODIN) PO SCH ×2 (12:22→22:43)
[2021-12-05] MEDS: SOD FERRIC GLUC COMPLEX/SUC 125 MG in NS 100 ML IV SCH (15:58)
[2021-12-05] MEDS: EPOETIN ALFA-EPBX 4,000 UNITS/ML VIAL SUBCUT SCH (16:01)
[2021-12-05 16:14] VITALS: BP_SYST 121
[2021-12-05] MEDS ORDERED: POTASSIUM CHLOR 20 mEq/Packet PO (17:23)
[2021-12-05] MEDS ORDERED: METOCLOPRAMIDE HCL 10 MG TABLET PO SCH (21:00)
[2021-12-05 21:20] VITALS: BP_SYST 148
[2021-12-05] MEDS: PANTOPRAZOLE SODIUM 40 MG TAB PO SCH (22:44)
[2021-12-05] MEDS: MIRTAZAPINE 15 MG TABLET PO SCH (22:44)
[2021-12-06] VITALS: BP_SYST 121
[2021-12-06] MEDS: PIPERACILLIN/TAZO 3.375/DEX-IS 50 ML IV SCH ×4 (00:46→18:13)
[2021-12-06] MEDS: BACLOFEN 10 MG TABLET PO SCH ×4 (00:46→18:12)
[2021-12-06] MEDS: IPRATROPIUM/ALBUTEROL SULFATE 3 ML AMPUL.NEB (DUONEB) INH SCH ×5 (03:00→20:21)
[2021-12-06 06:56] LABS: ANION GAP 4 (5-15); CALCIUM 8.8 mg/dL (8.4-11.0); CHLORIDE 106 mmol/L (98-107); GLUCOSE 86 mg/dL (70-99); POTASSIUM 3.5 mmol/L (3.5-5.1); SODIUM SERUM 144 mmol/L (136-145); UREA NITROGEN, BLOOD 5 mg/dL (8-21)
[2021-12-06] MEDS: DOCUSATE SODIUM 100 MG CAPSULE PO SCH (09:00)
[2021-12-06] MEDS: BISACODYL 10 MG/SUPPOSITORY RC SCH (09:00)
[2021-12-06] MEDS ORDERED: POTASSIUM CHLORIDE 20 MEQ/PKT PACKET PO SCH (09:00)
[2021-12-06] MEDS: CITALOPRAM HYDROBROMIDE 20 MG TABLET PO SCH (09:25)
[2021-12-06] MEDS: MULTIVITS,CA,MINERALS/IRON/FA 1 TABLET PO SCH (09:26)
[2021-12-06] MEDS: GABAPENTIN 300 MG CAPSULE PO SCH ×3 (09:27→18:12)
[2021-12-06] MEDS: LACTOBACILLUS RHAMNOSUS GG 1 CAP CAPSULE PO SCH (09:27)
[2021-12-06] MEDS: CHOLECALCIFEROL (VITAMIN D3) 5,000 UNIT TABLET PO SCH (09:34)
[2021-12-06] MEDS: PANTOPRAZOLE SODIUM 40 MG TAB PO SCH (09:36)
[2021-12-06] MEDS: HYDROcodone/ACETAMIN 5-325 MG TAB (NORCO/ VICODIN) PO SCH (10:44)
[2021-12-06 11:35] VITALS: BP_SYST 139
[2021-12-06 11:50] LABS: BASOPHILS % (AUTO) 0.1 % (0.0-2.0); EOSINOPHILS # (AUTO) 1.1 K/uL (0.0-0.4); EOSINOPHILS % (AUTO) 10.9 % (0.0-4.0); HEMATOCRIT 29.8 % (36-54); HEMOGLOBIN 9.6 g/dL (14.0-18.0); LYMPHOCYTES # (AUTO) 1.6 K/uL (1.0-5.5); LYMPHOCYTES % (AUTO) 15.3 % (20.5-51.5); MEAN CORPUSCULAR HEMOGLOBIN 27 pg (27-31); MEAN CORPUSCULAR HGB CONC 32 % (32-36); MEAN CORPUSCULAR VOLUME 83 fL (79.0-98.0); MONOCYTES # (AUTO) 1.1 K/uL (0.0-1.0); MONOCYTES % (AUTO) 10.7 % (1.7-9.3); NEUTROPHILS # (AUTO) 6.5 K/uL (1.8-7.7); PLATELET COUNT (AUTO) 229 K/uL (130-430); RED CELL DISTRIBUTION WIDTH 18.3 % (9.0-15.0); WHITE BLOOD COUNT (AUTO) 10.4 K/uL (4.8-10.8)
[2021-12-06 12:41] VITALS: BP_SYST 139
[2021-12-06 15:35] VITALS: BP_SYST 129
[2021-12-06] MEDS: SOD FERRIC GLUC COMPLEX/SUC 125 MG in NS 100 ML IV SCH (15:38)
== END 2021-12-06 22:15 | DRG 871 ==
LOC: SED 19:10 → STU 21:10 → SMU 12-04 19:40
PROVIDERS: ADMIT Internal Medicine; ATTEND Internal Medicine
DX: A41.9 Sepsis, unspecified organism (principal); J69.0 Pneumonitis due to inhalation of food and vomit; E43 Unspecified severe protein-calorie malnutrition; C79.9 Secondary malignant neoplasm of unspecified site; J96.10 Chronic respiratory failure, unspecified whether with hypoxia or hypercapnia; M86.8X6 Other osteomyelitis, lower leg; M79.2 Neuralgia and neuritis, unspecified; K21.9 Gastro-esophageal reflux disease without esophagitis; G47.00 Insomnia, unspecified; G89.4 Chronic pain syndrome; C61 Malignant neoplasm of prostate; N13.9 Obstructive and reflux uropathy, unspecified; R13.10 Dysphagia, unspecified; D63.8 Anemia in other chronic diseases classified elsewhere; Z20.822 Contact with and (suspected) exposure to COVID-19; D69.6 Thrombocytopenia, unspecified; Z87.440 Personal history of urinary (tract) infections; Z79.1 Long term (current) use of non-steroidal anti-inflammatories (NSAID); Z79.899 Other long term (current) drug therapy
CPT/HCPCS: 36415; 36600; 71045; 71250-TC; 76376; 76604; 78306; 80048; 80053; 80061; 81000; 82140; 82306; 82607; 82803-TC; 82962; 83540; 83550; 83605; 83690; 83735; 83880; 84100; 84484; 85025; 87040; 87081; 87086; 92610-GN; 93005; 93970; 94640; 94668; 94760; 96374; 96375; 99285; A9503; C9113; G0378; J0456; J1650; J2248; J2405; J2543; J2916; J3370; J7050; P9046; Q5106

== ENCOUNTER 2021-12-07 16:54 | Emergency (ER) | payer OTHER, MEDICARE ==
[~2021-12-07] VITALS: Ht 177.8 cm; Wt 81.6 kg
[~2021-12-07 16:54] MED LIST changes: +IPRA4AER INH; +MULT-1117 PO; +ONDA-8 SL; +POTASSIUM CHLOR 20 mEq/Packet PO
[2021-12-07 16:58] VITALS: BP_SYST 154
[2021-12-07] MEDS ORDERED: PANTOPRAZOLE SODIUM 40 MG/VIAL (PROTONIX) IVP ONE (17:30)
[2021-12-07 17:51] LABS: HEMATOCRIT 32.7 % (36-54); HEMOGLOBIN 10.6 g/dL (14.0-18.0); MEAN CORPUSCULAR HEMOGLOBIN 27 pg (27-31); MEAN CORPUSCULAR HGB CONC 32 % (32-36); MEAN CORPUSCULAR VOLUME 82 fL (79.0-98.0); PLATELET COUNT (AUTO) 282 K/uL (130-430); RED BLOOD CELL COUNT(AUTO) 4.01 MIL/uL (4.2-6.2); RED CELL DISTRIBUTION WIDTH 18.3 % (9.0-15.0)
[2021-12-07 17:58] LABS: ANION GAP 4 (5-15); CALCIUM 9.1 mg/dL (8.4-11.0); CHLORIDE 107 mmol/L (98-107); CREATININE 0.89 mg/dL (0.55-1.30); GLUCOSE 86 mg/dL (70-99); POTASSIUM 3.7 mmol/L (3.5-5.1); SODIUM SERUM 143 mmol/L (136-145); UREA NITROGEN, BLOOD 6 mg/dL (8-21)
[2021-12-07 18:06] LABS: ALANINE AMINOTRANSFERASE 36 U/L (12-78); ALBUMIN 1.7 g/dL (3.4-4.8); ASPARTATE AMINOTRANSFERASE 65 U/L (10-37); TOTAL BILIRUBIN 0.3 mg/dL (0.0-1.0)
[2021-12-07 18:08] LABS: BAND % (MANUAL) 1 % (0-6); BASOPHILS % (MANUAL) 0 % (0-2); EOSINOPHILS % (MANUAL) 11 % (0-7); LYMPHOCYTES % (MANUAL) 22 % (20-46); MONOCYTES % (MANUAL) 10 % (0-11)
[2021-12-07 20:08] LABS: BILIRUBIN,URINE NEGATIVE (NEGATIVE); BLOOD, URINE NEGATIVE (NEGATIVE); CLARITY/URINE CLEAR (CLEAR); COLOR,URINE YELLOW (YELLOW); GLUCOSE,URINE NEGATIVE (NEGATIVE); KETONES,URINE NEGATIVE (NEGATIVE); LEUKOCYTE ESTERASE ,URINE NEGATIVE (NEGATIVE); NITRITE, URINE NEGATIVE (NEGATIVE); PH,URINE 8.5 (5.0-8.0); PROTEIN URINE NEGATIVE (NEGATIVE); UROBILINOGEN,URINE 0.2 (0.2-1.0)
[2021-12-08 02:11] VITALS: BP_SYST 154
== END 2021-12-08 02:05 | disposition home or self-care (01) ==
LOC: SED 16:54
DX: R60.9 Edema, unspecified (principal); K21.9 Gastro-esophageal reflux disease without esophagitis; Z79.899 Other long term (current) drug therapy
CPT/HCPCS: 36415; 71045; 76376; 80053; 81003; 83605; 83880; 84484; 85007; 85027; 93005; 93970; 99285